=== PATIENT | female | born 1930 ===

== ENCOUNTER 2018-11-08 12:35 | Emergency (ER) | payer MEDICARE, OTHER ==
[~2018-11-08] VITALS: Ht 157.5 cm; Wt 45.4 kg
[2018-11-08 13:51] LABS: Hematocrit 36.3 % (36.0-46.0); Hemoglobin 12.6 g/dL (12.2-16.2); Mean Corpuscular Hemoglobin 38.1 pg (28.0-32.0); Mean Corpuscular Hgb Conc. 34.8 g/dL (32.0-36.0); Mean Corpuscular Volume 109.5 fL (80.0-100.0); Platelet Count (auto) 233 10^3/uL (140-450); Red Blood Cells 3.31 10^6/uL (4.0-5.20); Red Cell Distribution Width 15.8 % (11.8-14.3); White Blood Cell 11.7 10^3/uL (4.4-10.8)
[2018-11-08 13:54] LABS: Basophils % (manual) 0 (0.0-2.0); Blast Cells 0; Eosinophils % (manual) 0 (0-7); Metamyelocytes % 0; Myelocytes % 0; Promyelocytes % 0; Reactive Lymphocytes 0
[2018-11-08 14:11] LABS: INR 0.99 (0.9-1.15); Partial Thromboplastin Time 28.2 sec (23.64-32.05)
[2018-11-08 14:12] LABS: Albumin 3.9 g/dL (3.4-5.0); Anion Gap 11 (5-15); Blood Urea Nitrogen 10 mg/dL (7-18); Calcium 8.5 mg/dL (8.5-10.1); Carbon Dioxide 25 mmol/L (21-32); Chloride 95 mmol/L (98-107); Glucose 110 mg/dL (74-106); Potassium 3.7 mmol/L (3.5-5.1); Sodium 131 mmol/L (136-145)
[2018-11-08 14:19] LABS: Alanine Aminotransferase 20 U/L (13-56); Alkaline Phosphatase 60 U/L (45-117); Aspartate Aminotransferase 20 U/L (15-37); BUN/Creatinine Ratio 22.2; Band Neutrophils % (manual) 6; GFR African American 170 mL/min; GFR Non-African American 140 mL/min; Lymphocytes % (manual) 10 (10.0-50.0); Monocytes % (manual) 17 (0-12); Total Protein 7.3 g/dL (6.4-8.2)
[2018-11-08 16:11] VITALS: BP 165/93
== END 2018-11-08 16:17 | disposition home or self-care (01) ==
LOC: ER 12:43
DX: M54.5 Low back pain (principal); R42 Dizziness and giddiness; I10 Essential (primary) hypertension; G89.29 Other chronic pain; Z90.710 Acquired absence of both cervix and uterus; W18.39XA Other fall on same level, initial encounter; Y93.89 Activity, other specified; Y92.89 Other specified places as the place of occurrence of the external cause; Y99.8 Other external cause status
CPT/HCPCS: 36415; 70450; 71045; 72131; 72192; 80053; 83880; 84484; 85007; 85027; 85610; 85730